=== PATIENT | male | born 1935 | race Caucasian/White ===

== ENCOUNTER 2016-02-25 10:45 | Inpatient (IN) | payer OTHER ==
[2016-02-21 13:32] VITALS: BMI 23.5
[2016-02-28] MEDS ORDERED: oxyCODONE HCL 10 MG SUSTAINED ACTING TABLET PO STA (07:01)
[2016-02-28] MEDS ORDERED: oxyCODONE HCL 10 MG SUSTAINED ACTING TABLET ONE (07:02)
--- NOTE | 2016-02-28 07:21 | HP ---
History & Physical Update - History History: No Change - Physical Physical: No Change - Assessment Assessment: No Change - Plan Plan: No Change (Initial h&p is in patient's chart)
[2016-02-28] MEDS ORDERED: THROMBIN (BOVINE) 5,000 UNIT VIAL TP ONE (07:38)
[2016-02-28] MEDS ORDERED: LIDOCAINE 1%-EPI 1:100,000 30 ML MDV IJ ONE (07:44)
[2016-02-28] MEDS ORDERED: SUCCINYLCHOLINE CHLORIDE 200 MG/10 ML VIAL ONE (08:03)
[2016-02-28] MEDS ORDERED: PROPOFOL 20 ML ONE ×3 (08:03→09:38)
[2016-02-28] MEDS ORDERED: MIDAZOLAM HCL 2 MG/2 ML SINGLE DOSE VIAL ONE ×3 (08:04)
[2016-02-28] MEDS ORDERED: ceFAZolin SODIUM 1 GM VIAL ONE (08:56)
[2016-02-28] MEDS ORDERED: DEXAMETHASONE SOD PHOSPHATE 4 MG/1 ML VIAL ONE (08:56)
[2016-02-28] MEDS ORDERED: ONDANSETRON 4 MG/2 ML VIAL ONE ×2 (08:56→10:27)
[2016-02-28] MEDS ORDERED: LIDOCAINE 1%/EPI 1:100000 (50 ML MULTI DOSE VIAL) INF ONE (09:00)
[2016-02-28] MEDS ORDERED: KETAMINE HCL 200 MG/20 ML VIAL ONE (09:01)
[2016-02-28] MEDS ORDERED: VASOPRESSIN 20 UNITS/ML VIAL IV ONE (09:06)
[2016-02-28] MEDS ORDERED: BUPIVACAINE HCL/PF 2.5 MG/ML - 30 ML VIAL IJ ONE (09:24)
[2016-02-28] MEDS ORDERED: GLYCOPYRROLATE 0.2 MG/1 ML VIAL ONE (09:59)
[2016-02-28] MEDS ORDERED: BUPIVACAINE HCL/PF 0.25% (2.5MG/ML) 10 ML VIAL IJ ONE (10:37)
[2016-02-28] MEDS ORDERED: FLUMAZENIL 0.5 MG/5 ML VIAL ONE (10:56)
--- NOTE | 2016-02-28 11:09 | OP ---
Operative Note - Note: Operative Date: 02/28/16 Pre-Operative Diagnosis: Spondylolithesis Operation: Posterior decompression/fusion/instrumentation/transforaminal lumbar interbody fusion L5-S1 with allograft implant and neuromonitoring Post-Operative Diagnosis: Same as Pre-op Surgeon: Chapin Croft Skin Lifter Bacon: Al Montez Anesthesiologist/PROFESSIONAL SERVICES MANAGER: Alyse Arcos Anesthesia: General Specimens Removed: L5-S1 disc Estimated Blood Loss (mls): 10 Drains & Tubes with Location: hemovac (lumbar) Fluid Volume Replaced (mls): 1,000 Operative Report Dictated: Yes
--- NOTE | 2016-02-28 11:10 | SURG ---
Surgery Healthcare Marketer Note Healthcare Marketer: Al Montez PA-C Date of Service: 02/28/16 Diagnosis: Spondylolithesis Procedure: Posterior decompression/fusion/instrumentation/transforaminal lumbar interbody fusion L5-S1 with allograft implant and neuromonitoring I was present for the entirety of the operative procedure. For further detail, please refer to operative report. Visit type - Case Type Case Type: Scheduled Admission - New patient This patient is new to me today: Yes Date on this admission: 02/28/16
[2016-02-28] MEDS ORDERED: morphine CARPU-JECT 4 MG/1 ML DISP.SYRIN IVPUSH PRN ×2 (11:11→16:52)
[2016-02-28] MEDS ORDERED: ONDANSETRON 4 MG/2 ML VIAL IVPB PRN ×2 (11:11→16:47)
[2016-02-28] MEDS ORDERED: KETOROLAC TROMETHAMINE 30 MG/1 ML VIAL IVPUSH PRN (11:11)
[2016-02-28] MEDS ORDERED: oxyCODONE HCL 5 MG TABLET PO PRN ×2 (11:11)
[2016-02-28] MEDS ORDERED: CYCLOBENZAPRINE HCL 10 MG TABLET (FP) PO PRN (11:11)
[2016-02-28] MEDS ORDERED: LACTATED RINGERS SOLUTION 1,000 ML IV SCH ×2 (11:15→11:30)
[2016-02-28] MEDS ORDERED: ACETAMINOPHEN 1000 MG/100 ML VIAL (NON FORMULARY) IVPB SCH (11:15)
[2016-02-28] MEDS ORDERED: ACETAMINOPHEN 1000 MG/100 ML VIAL (NON FORMULARY) IVPB ONE (11:15)
[2016-02-28] MEDS ORDERED: ONDANSETRON 4 MG/2 ML VIAL IVPUSH PRN (11:17)
[2016-02-28] MEDS ORDERED: HYDROmorphone HCL CARPU-JECT 1 MG/1 ML DISP.SYRIN IVPUSH PRN (11:17)
[2016-02-28] MEDS ORDERED: HYDROmorphone HCL CARPU-JECT 2 MG/1 ML DISP.SYRIN ONE (11:54)
[2016-02-28] MEDS ORDERED: diazePAM CARPU-JECT 10 MG/2 ML DISP.SYRIN ONE (11:54)
[2016-02-28] MEDS ORDERED: diazePAM CARPU-JECT 10 MG/2 ML DISP.SYRIN IVPUSH ONE (13:15)
[2016-02-28] MEDS: CEFAZOLIN 1 GM/D5W 50 ML IVPB SCH ×2 (15:56→23:22)
[2016-02-28] MEDS ORDERED: CEFAZOLIN 1 GM/D5W 50 ML IVPB SCH (16:00)
[2016-02-28] MEDS ORDERED: ACETAMINOPHEN 325 MG TABLET (FP) PO PRN ×2 (16:49→18:00)
[2016-02-28] MEDS: oxyCODONE HCL 5 MG TABLET PO PRN ×2 (17:03→23:19)
[2016-02-28] MEDS: ATORVASTATIN CA 10 MG TABLET (FP) PO SCH (21:22)
[2016-02-28] MEDS ORDERED: ATORVASTATIN CA 10 MG TABLET (FP) PO SCH (22:00)
[2016-02-29] MEDS: oxyCODONE HCL 5 MG TABLET PO PRN ×3 (06:45→21:08)
[2016-02-29] MEDS: CEFAZOLIN 1 GM/D5W 50 ML IVPB SCH (08:27)
[2016-02-29 09:07] LABS: MCH 29.8 pg (25.7-33.7); MCHC 32.6 g/dl (32.0-35.9); MEAN CELL VOLUME 91.4 fl (80-96); MEAN PLT VOLUME 9.8 fl (7.5-11.1); PLATELET COUNT 164 K/MM3 (134-434); RDW 12.7 % (11.9-15.9); WHITE BLOOD COUNT 12.8 K/mm3 (4.0-10.0)
[2016-02-29] MEDS ORDERED: LACTATED RINGERS SOLUTION 1,000 ML IV SCH (09:18)
[2016-02-29 09:24] LABS: CALCIUM 9.4 mg/dl (8.4-10.2); CREATININE 1.3 mg/dl (0.6-1.3)
[2016-02-29] MEDS: LOSARTAN POTASSIUM 25 MG TABLET PO SCH (09:37)
[2016-02-29 09:52] LABS: URINE APPEARANCE CLOUDY; URINE BILIRUBIN Negative (NEGATIVE); URINE BLOOD 3+ (NEGATIVE); URINE COLOR RED; URINE GLUCOSE (UA) Negative (NEGATIVE); URINE KETONE Negative (NEGATIVE); URINE LEUK ESTERASE 1+ (NEGATIVE); URINE NITRITE Negative (NEGATIVE); URINE PROTEIN 2+ (NEGATIVE); URINE UROBILINOGEN 0.2 E.U/dl (0.2-1.0)
[2016-02-29 09:53] LABS: URINE RBC 30-50 /hpf (0-3)
[2016-02-29 09:54] LABS: URINE BACTERIA MODERATE /hpf (NEGATIVE)
[2016-02-29] MEDS ORDERED: ASPIRIN 81 MG CHEWABLE TABLETS PO SCH ×2 (10:00)
[2016-02-29] MEDS ORDERED: LOSARTAN POTASSIUM 25 MG TABLET PO SCH (10:00)
--- NOTE | 2016-02-29 10:26 | PN ---
Progress Note (short form) - Note Progress Note: POD#1 PT complaints of pain to right hip 2 to 04/25. Otherwise no CP, SOB, ABD pain. Spoke with the nursing staff and last night he wasn't able to void post surgery. Eventually he did void but it was bloody(darker) according to the nursing staff. He voided approx 300 and then had 400ml residual on bladder scan. They were able to pass a 14 fr peralta with approximately 900ml bloody urine return. He denies any previous hematuia, elevated PSA level, occasional nocturiaand has not seen a urologist in the past. Vital Signs Period Temp Pulse Resp BP Sys/Bundy Pulse Ox Last 24 Hr 97.9 F-98.8 F 78-98 14-20 114-146/46-78 97-100 ELINOR-2ml [id number](bright red) PE: GEN: alert and comfortable CV: RRR Lungs: CTA b/l, anteriorly ABD: soft, non-distended, non-tender. No CVA tenderness b/l Back: drain removed intact-inc c/d/i with steri-strips. New 4x4 gauze/dressing applied. LE: dorsi/plantar flexion/EHL 5/[address]. No calf tenderness or swelling noted b/l CBC, BMP 02/29/16 07:00 02/29/16 07:00 XRAY-posterior spinal fixation of L5-S1 <Amelia Patel - Last Filed: 02/29/16 14:20> - Note Progress Note: Patient seen and examined Agree with Above Events of last night noted Will keep peralta in place, awaiting Urology consult <Chapin Croft - Last Filed: 03/03/16 10:21> Problem List - Problems (1) Spondylolisthesis Assessment/Plan: s/p posterior lumbar fusion of L5-S1, doing well post-opertively but now with hemturia. Urology consult with Dr. Nova, spoke with him and ordered CT scan of abd/pelivs w/wo iv contrast, UA/Urine culture. Hold aspirin/toradol..DCT ppx with SCDs and ambulationg. S/w Dr. Croft and wIll hold off on discharge until seen by urology and urine clears. Continue IV hydration x 24 hours at 55ml/hr, irrigate peralta as needed if cath not draining well. CBC/chem in the am. oral pain medications, and resume home meds except for aspirin. Code(s): M43.10 - SPONDYLOLISTHESIS, SITE UNSPECIFIED <Aemlia Patel - Last Filed: 02/29/16 14:20>
[2016-02-29] MEDS ORDERED: SODIUM CHLORIDE 0.45% 1,000 ML IV SCH (14:30)
[2016-02-29] MEDS: CYCLOBENZAPRINE HCL 10 MG TABLET (FP) PO PRN (18:59)
[2016-02-29] MEDS: ATORVASTATIN CA 10 MG TABLET (FP) PO SCH (21:09)
--- NOTE | 2016-02-29 21:32 | PN ---
Progress Note (short form) - Note Progress Note: S/P lumbar fusion, patient developed urinary retention and after catheterization he developed gross hematuria CT scan revealed enlarged prostate without other pathology Imp- Gross hematuria maintain peralta start Flomax will need cysto as outpatient
[2016-02-29] MEDS ORDERED: TAMSULOSIN HCL 0.4 MG CAP.ER.24H (FP) PO SCH (22:00)
[2016-03-01] MEDS: oxyCODONE HCL 5 MG TABLET PO PRN ×2 (05:58→10:17)
[2016-03-01 08:24] LABS: BASOPHIL 0.4 % (0-2.0); EOSINOPHIL 0.8 % (0-4.5); MCHC 32.4 g/dl (32.0-35.9); MEAN CELL VOLUME 92.6 fl (80-96); MEAN PLT VOLUME 9.2 fl (7.5-11.1); NEUTROPHILS 75.1 % (42.8-82.8); PLATELET COUNT 135 K/MM3 (134-434); RDW 12.9 % (11.9-15.9); WHITE BLOOD COUNT 9.1 K/mm3 (4.0-10.0)
[2016-03-01 08:39] LABS: CALCIUM 9.5 mg/dl (8.4-10.2); CREATININE 1.2 mg/dl (0.6-1.3)
[2016-03-01] MEDS: LOSARTAN POTASSIUM 25 MG TABLET PO SCH (10:12)
--- NOTE | 2016-03-01 10:44 | DS ---
[id number] with Dr. Jose De Dios Urologist with [facility] for his enlarged prostate. Flomax script escribed as well. Original Note: Physical Exam: SUBJECTIVE: Patient seen and examined POD #2 s/p TLIF L5-S1. Resting comfortably without complaint. Patient is VERY upset about the peralta. Wants it out!! Denies n/v/f/c, CP, SOB, numbness/tingling or weakness to his lower extremities. OBJECTIVE: Last Vital Signs Temp Pulse Resp BP Pulse Ox 98.4 F 99 H 19 109/58 93 L /14/ 06:00 03/01/16 06:00 03/01/16 06:00 03/01/16 06:00 03/01/16 06:00 PHYSICAL EXAM GENERAL: The patient is awake, alert, and fully oriented, in no acute distress. HEAD: Normal with no signs of trauma. EYES: PERRL, extraocular movements intact, sclera anicteric, conjunctiva clear. NECK: Trachea midline, full range of motion, supple. LUNGS: CTA b/l anteriorly HEART: RRR ABDOMEN: Soft, NT, ND. EXTREMITIES: 2+ pulses, warm, well-perfused, no edema. NEUROLOGICAL: Cranial nerves II through XII grossly intact. Normal speech, gait not observed. PSYCH: Normal mood, normal affect. SKIN: Warm, dry, normal turgor, no rashes or lesions noted. HOSPITAL COURSE: Date of Admission:[id number] Date of Discharge: 03/01/16 The patient was admitted to the Med-Surg Unit after an elective repair of their lumbosacral spondylolithesis. Now, s/p TLIF L5-S1. The day of surgery, the patient ambulated the hallways with assistance. Narcotic and non-narcotic pain management control was achieved with an oral and IV approach. POD #1, the surgical drain was removed fully intact and without incident. An xray was obtained and confirmed hardware placement at (level of ), no fractures or dislocations. The patient went into urinary retention. RN reported it appearing bloody. A 14Fr peralta cath inserted and manually irrigated until clear. A CT scan ordered which confirmed an enlarged prostate. He was started on Flomax as well as a home script. Dr. Santana (Urosurgeon) consulted. POD #2, urine remained clear. Peralta removed and began trial of void. Dorene-operative IV ABX were administered. DVT prophylaxis was achieved with SCDs and early ambulation. The patient ambulated with Physical Therapy and no services were recommended upon discharge. Narcotic scripts and or muscle relaxants were checked with [place] [employer] prior to escibe. The discharge instructions and an oral pain management plan were reviewed with the patient. All questions answered. Patient will be followed at [facility] for urology follow-up for possible out- patient cysto. Above plan discussed with Dr. Croft and agreed. Minutes to complete discharge: 20 <Al Montez P - Last Filed: 03/01/16 10:45> Physical Exam: SUBJECTIVE: Patient seen and examined OBJECTIVE: Vital Signs Temperature 97.4 F L 03/01/16 14:17 Pulse Rate 98 H 03/01/16 14:17 Respiratory Rate 21 03/01/16 14:17 Blood Pressure 138/58 03/01/16 14:17 O2 Sat by Pulse Oximetry (%) 93 L 03/01/16 09:00 PHYSICAL EXAM GENERAL: The patient is awake, alert, and fully oriented, in no acute distress. HEAD: Normal with no signs of trauma. EYES: PERRL, extraocular movements intact, sclera anicteric, conjunctiva clear. ENT: Ears normal, nares patent, oropharynx clear without exudates, moist mucous membranes. NECK: Trachea midline, full range of motion, supple. LUNGS: Breath sounds equal, clear to auscultation bilaterally, no wheezes, no crackles, no accessory muscle use. HEART: Regular rate and rhythm, S1, S2 without murmur, rub or gallop. ABDOMEN: Soft, nontender, nondistended, normoactive bowel sounds, no guarding, no rebound, no hepatosplenomegaly, no masses. EXTREMITIES: 2+ pulses, warm, well-perfused, no edema. NEUROLOGICAL: Cranial nerves II through XII grossly intact. Normal speech, gait not observed. PSYCH: Normal mood, normal affect. SKIN: Warm, dry, normal turgor, no rashes or lesions noted. LABS CBC,CMP WBC 9.1 K/mm3 (4.0-10.0) 03/01/16 08:00 RBC 3.53 M/mm3 (4.00-5.60) L 03/01/16 08:00 Hgb 10.6 GM/dl (11.7-16.9) L 03/01/16 08:00 Hct 32.7 % (35.4-49) L 03/01/16 08:00 MCV 92.6 fl (80-96) 03/01/16 08:00 MCHC 32.4 g/dl (32.0-35.9) 03/01/16 08:00 RDW 12.9 % (11.9-15.9) 03/01/16 08:00 Plt Count 135 K/MM3 (134-434) 03/01/16 08:00 MPV 9.2 fl (7.5-11.1) 03/01/16 08:00 Neutrophils % 75.1 % (42.8-82.8) 03/01/16 08:00 Lymphocytes % 11.4 % (8-40) 03/01/16 08:00 Monocytes % 12.3 % (3.8-10.2) H 03/01/16 08:00 Eosinophils % 0.8 % (0-4.5) 03/01/16 08:00 Basophils % 0.4 % (0-2.0) 03/01/16 08:00 Sodium 137 mmol/L (136-145) 03/01/16 08:00 Potassium 4.4 mmol/L (3.5-5.1) 03/01/16 08:00 Chloride 104 mmol/L (98-107) 03/01/16 08:00 Carbon Dioxide 28 mmol/L (22-28) 03/01/16 08:00 Anion Gap 5 (8-16) L 03/01/16 08:00 BUN 21 mg/dl (7-18) H 03/01/16 08:00 Creatinine 1.2 mg/dl (0.6-1.3) 03/01/16 08:00 POC Glucometer 173 UNITS (()) 02/28/16 11:12 Random Glucose 115 mg/dl (74-106) H 03/01/16 08:00 Calcium 9.5 mg/dl (8.4-10.2) 03/01/16 08:00 HOSPITAL COURSE: Date of Admission:02/28/16 Date of Discharge: 03/03/16 The patient was admitted to the Med-Surg Unit after an elective repair of their (problem). Now, s/p ( procedure ). The day of surgery, the patient ambulated the hallways with assistance. Narcotic and non-narcotic pain management control was achieved with an oral and IV approach. POD #1, the surgical drain was removed fully intact and without incident. An xray was obtained and confirmed hardware placement at (level of ), no fractures or dislocations. Dorene-operative IV ABX were administered. DVT prophylaxis was achieved with SCDs and early ambulation. The patient ambulated with Physical Therapy and no services were recommended upon discharge. Narcotic scripts and or muscle relaxants were checked with [place] [employer] prior to escibe. The discharge instructions and an oral pain management plan were reviewed with the patient. All questions answered. Above plan discussed with Dr. Crotf and agreed. Patient seen and examined Patient was able to pass Trial of Void Patient instructed to return to ER if he has difficulty with urinating <Chapin Croft - Last Filed: 03/03/16 10:23> Visit type - Case Type Case Type: Scheduled Admission <Al Montez - Last Filed: 03/01/16 10:45>
[2016-03-01] MEDS: CYCLOBENZAPRINE HCL 10 MG TABLET (FP) PO PRN (13:43)
[2016-03-01 14:18] VITALS: BP 138/58; PULSE 98; TEMP 97.4
--- NOTE | 2016-06-11 08:49 | OP ---
DATE OF OPERATION: 02/28/2016 PREOPERATIVE DIAGNOSIS: 1. Spinal stenosis, L5-S1. 2. Spondylolisthesis. POSTOPERATIVE DIAGNOSIS: 1. Spinal stenosis, L5-S1. 2. Spondylolisthesis. PROCEDURES PERFORMED: 1. Transforaminal lumbar interbody fusion, L5-S1. 2. Placement of instrumentation, L5-S1. 3. Hemilaminectomy. 4. Placement of prosthetic cage. SURGEON: Chapin Croft MD CONTENT ARCHITECT: RANCHO Cordova ESTIMATED BLOOD LOSS: 50 mL. INTRAVENOUS FLUID: Per Anesthesia. ANESTHESIA: General. COMPLICATIONS: There were none. DISPOSITION: Patient brought to the PACU in stable condition. INDICATIONS FOR SURGERY: The patient is a 80-year-old gentleman who has been suffering from pain from his back down his legs. X-rays and MRI were completed, which noted that he had spinal stenosis at L5-S1. He had previously undergone spinal decompression at that level and rehernia at that level. We had discussed different methods of revising including revision laminectomy versus fusion. After a thorough discussion, patient elected to have a lumber fusion. Risks, benefits, and alternatives were discussed, and the patient consented to surgery. OPERATIVE NOTE: Patient was brought to the operating room by the anesthesia staff. After appropriate patient identification was performed, general anesthesia was administered. Appropriate anesthetic lines were placed. SCDs were placed. Neuromonitoring leads were attached. Patient was placed prone onto the OR table with his legs extended. The C-arm was brought in. The L5-S1 pedicles were marked off. Lidocaine, 10 mL, with epinephrine was injected into the back at this time. His back was prepped and draped in a sterile manner. At this point, a time-out was completed. An incision was made from the top of L5 down to the bottom of S1. Dissection was carried down to the fascia. Fascia was split open at this time. Under C-arm guidance, trocars were advanced into both the L5 and S1 pedicles. Through the trocars, wire was inserted. The trocars were removed. Over the wires, tap was performed and screws were inserted. On the right -hand side, retractable blades were used to expose the L5-S1 facet joint. The disc was entered using a series of pituitaries, Kerrisons, and curettes. A discectomy was completed. The end-plates were decorticated at this time. Bone graft was laid down. A cage filled with bone graft was placed in. Screw heads were placed over the screws. A piero was measured and placed on compression, and final tightening was performed. On the left-hand side, a piero was measured, placed, capsule placed on, and final tightening was performed. Compression was applied. AP and lateral x-rays confirmed the instrumentation to be in good position. All bleeding was well controlled at this time. The fascia was closed with a No. 1 Vicryl suture. A drain was placed. The subcutaneous tissues were closed with 2 -0 Vicryl suture. Skin was closed with 3-0 Dermabond. Dermabond was applied. Steri-Strips were applied. Sterile dressings applied. Patient was placed supine on the OR bed, extubated in the OR, and brought to the PACU in stable condition. It should be noted that neuromonitoring was stable throughout the operative course. Elisabet [id number] MTDD
== END 2016-03-01 16:00 | disposition home or self-care (01) | DRG 460 ==
LOC: FASU 02-28 06:26 → EDSTATUS 02-28 10:45 → FM/S 02-28 11:11 → FASU 02-28 14:09
PROVIDERS: ADMIT Orthopaedic Surgery Orthopaedic Surgery of the Spine; ATTEND Orthopaedic Surgery Orthopaedic Surgery of the Spine
PROC: 0SG30A1 (ICD-10-PCS; principal; 2016-02-28 08:15)
DX: M43.17 Spondylolisthesis, lumbosacral region (principal); I10 Essential (primary) hypertension
CPT/HCPCS: 36415; 72100-TC; 74178-TC; 76001-TC; 80048; 81003; 81015; 85025; 85027; 87086; 94010; 94760; 97116-GP; 97162-PG